=== PATIENT | male | born 1980 ===

== ENCOUNTER 2023-07-17 12:42 | Emergency (ER) | payer MEDICAID, SELFPAY ==
--- NOTE | ~2023-07-17 | XR_ITS ---
EXAMINATION: Left wrist x-ray and left finger x-ray CLINICAL INFORMATION: Pain COMPARISON: None. TECHNIQUE: 4 views of the left wrist and 3 views of the left fifth finger FINDINGS: Left wrist: Bone alignment is normal. No fracture or dislocation. Normal joint spaces. Normal soft tissues. Left fifth finger: There is a volar plate fracture of the distal phalanx of the fifth finger intra-articular with the DIP joint. Fracture fragment is displaced dorsally. There may be slight volar or palmar subluxation of the distal phalanx with respect to the middle phalanx. Fracture fragment appears well-corticated and may not be acute. There is overlying soft tissue swelling. XR/XR finger LT min 2V IMPRESSION: Left fifth finger: The liver plate fracture of the distal phalanx of the fifth finger intra-articular with the DIP joint. This may not be acute. Left wrist: Unremarkable exam
--- NOTE | ~2023-07-17 | XR_ITS ---
EXAMINATION: Left wrist x-ray and left finger x-ray CLINICAL INFORMATION: Pain COMPARISON: None. TECHNIQUE: 4 views of the left wrist and 3 views of the left fifth finger FINDINGS: Left wrist: Bone alignment is normal. No fracture or dislocation. Normal joint spaces. Normal soft tissues. Left fifth finger: There is a volar plate fracture of the distal phalanx of the fifth finger intra-articular with the DIP joint. Fracture fragment is displaced dorsally. There may be slight volar or palmar subluxation of the distal phalanx with respect to the middle phalanx. Fracture fragment appears well-corticated and may not be acute. There is overlying soft tissue swelling. XR/XR wrist LT min 3V IMPRESSION: Left fifth finger: The liver plate fracture of the distal phalanx of the fifth finger intra-articular with the DIP joint. This may not be acute. Left wrist: Unremarkable exam
[2023-07-17 13:57] VITALS: BP 103/58; PULSE 73; RESP 18; TEMP 36.9; O2SAT 97; BMI 23.6
--- NOTE | 2023-07-17 13:57 | ED.GENADULT ---
HPI - General Adult General Chief complaint: Extremity Injury, Upper Stated complaint: Kenny Smith Pinky 1 Month Ago Time Seen by Provider: 07/17/23 15:38 Source: patient, RN notes reviewed and old records reviewed Mode of arrival: ambulatory History of Present Illness [facility] narrative: 42-year-old male with no significant past medical history presenting to the ED complaining of continued left pinky finger pain and swelling S/P jamming finger 1 month ago while playing basketball. Reports decreased ROM. Has been taking OTC medications without relief. Denies numbness, tingling, injury to other area. Patient is left-hand dominant Onset (ago): month(s) Related Data Previous Rx's Medication Instructions Recorded acetaminophen 500 mg tablet 500 mg PO Q6H PRN fever or pain 07/17/23 (Tylenol Extra Strength) #14 tabs ketorolac 10 mg tablet 10 mg PO TID PRN pain 5 days #15 07/17/23 tabs Allergies Allergy/AdvReac Type Severity Reaction Status Date / Time Penicillins Allergy Rash Verified 07/17/23 13:56 Review of Systems Review of Systems: Constitutional: No Fever, No Chills ENT/Mouth: No Ear Pain, No Nasal Congestion, No sore throat, No Rhinorrhea, No Swallowing Difficulty Cardiovascular: No Chest Pain, No SOB Respiratory: No Cough, No Sputum Gastrointestinal: No Nausea, No Vomiting, No Abdominal pain Musculoskeletal: + joint pain, No Myalgias, + Joint Swelling Skin: No Skin Lesions, No rash Neuro: No Weakness, No Numbness, No Paresthesias Yes all other systems are reviewed and are negative Constitutional: Constitutional: Reports as per [facility] Past Medical History Attestation statement: The following information was validated with the patient. Source: old records reviewed Social History Social History Advance Directives: No Advance Directives Information Provided: No Physical Exam ED Vital Signs: Vital Signs - 24 hr 07/17/23 13:57 Temperature 98.4 F Pulse Rate 73 Respiratory Rate 18 Blood Pressure 103/58 L Pulse Oximetry 97 Oxygen Delivery Method Room Air BMI result Body Mass Index 23.6 Const General: cooperative, healthy appearing and no acute distress Orientation/consciousness: patient oriented x3 Limitations: no limitations HENMT Head: Yes normal to inspection and Yes atraumatic Ears: hearing grossly normal bilaterally General nose exam: Normal external nose present Face and sinus: Yes normal facial exam Eyes General: appearance normal, both eyes and all related structures EOM: EOMs intact bilaterally Neck Neck: Yes normal visual inspection and Yes no meningeal signs Resp Effort & Inspection: normal respiratory effort and no respiratory distress Cardio Rate: regular rate Skin Rashes: no rashes Wounds: no wounds Neuro General: patient oriented x3, tone normal and no meningeal signs Cranial nerves: Yes CN's II-XII intact bilaterally Gait exam (Neuro): Normal gait present Extrem Other: Left distal 5th digit with swelling and decreased ROM. Extension at DIP absent. FROM to all other digits and wrist intact. No snuffbox tenderness. Finger to thumb opposition intact. Neurovascularly intact. Course Course Course Narrative: RME- left fifth finger pain and left wrist pain for the last month after injuring it playing basketball. Plan for x-rays XR wrist LT min 3V/XR finger LT min 2V IMPRESSION: Left fifth finger: The liver plate fracture of the distal phalanx of the fifth finger intra-articular with the DIP joint. This may not be acute. Left wrist: Unremarkable exam > patient placed in finger splint in hyperextension. Recommended close orthopedic follow-up. Results discussed with patient including worrisome signs and symptoms and strict return precautions, and when to return to the emergency department. They verbalized understanding and feel safe for discharge at this time. Procedures Orthopedic Splinting/Casting Injury #1: Side: left Upper Extremity Injury Location: finger Upper Extremity Immobilizer: finger (other) Medical Decision Making Medical Decision Making MDM Narrative: 42-year-old male with no significant past medical history presenting to the ED complaining of continued left pinky finger pain and swelling S/P jamming finger 1 month ago while playing basketball. On exam vital signs stable, NAD, nontoxic appearing, physical exam as noted above with left distal 5th digit with noted swelling and deformity, DIP extension absent. Concern for subacute fracture with avulsion injury. No evidence of cellulitis/infection or septic joint. Plan: X-rays Please refer to course for remaining clinical decision making, interpretation of labs/imaging results, and discussions with consultants and/or family members. Differential Diagnosis Differential Diagnoses: The differential diagnosis associated with the presentation includes As above Independent Interpretation I performed an independent interpretation of an: Plain X-Ray Radiology Impression Discussion of test interpretation with radiology: I have reviewed the radiologist's reading. External Record Review External record reviewed: Inpatient record, Office record, Outpatient record, Prior outpatient labs, Prior outpatient radiology, Primary care record and Outside ED record Tests considered The following testing was considered but not selected: As above Prescription Management I considered prescription management with: Pain Medication Discharge Plan Discharge Clinical Impression: Fracture of distal phalanx of left little finger, Mallet finger Patient Disposition: Home, Self-Care Instructions: Jammed Finger (ED), Finger Fracture (ED) Additional Instructions: You have a fracture of her distal pinky finger. We suspect you also ruptured your extensor tendon Please keep finger splint on, dry and clean Take Tylenol and Toradol for pain/swelling. While taking Toradol do not take ibuprofen/Motrin/Aleve or naproxen as they are similar medications, only pick 1 Ice and elevate Prescriptions: New acetaminophen [Tylenol Extra Strength] 500 mg tablet 500 mg PO Q6H PRN (Reason: fever or pain) Qty: 14 0RF ketorolac 10 mg tablet 10 mg PO TID PRN (Reason: pain) 5 Days Qty: 15 0RF Referrals: Evette Arriaga MD [Physician] - 5 days
[2023-07-17] MEDS: Ketorolac Tromethamine 30 MG/ML VIAL IM (16:50)
== END 2023-07-17 16:54 | disposition home or self-care (01) ==
PROVIDERS: Emergency Provider Student in an Organized Health Care Education/Training Program; PCP Internal Medicine
DX: S62.637A Displaced fracture of distal phalanx of left little finger, initial encounter for closed fracture (principal); M25.532 Pain in left wrist; Y29.XXXA Contact with blunt object, undetermined intent, initial encounter; Y93.9 Activity, unspecified; Y92.9 Unspecified place or not applicable; Y99.9 Unspecified external cause status
CPT/HCPCS: 29130; 73110; 73140; 96372; 99283; 99284; J1885

== ENCOUNTER 2023-07-21 10:14 | Outpatient (AMB) | payer MEDICAID, SELFPAY ==
--- NOTE | 2023-07-21 10:15 | MHC.OFFVIS ---
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 Patient reports about 1-2 months while playing basketball he jammed his small finger. He presented to [facility] ED where xrays were taken, placed in splint and referred to orthopedics. Currently pt states he has pain and discomfort at this time. 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 He was seen at ED where x-rays were performed and he was placed in a splint as well as referred to our office. He currently states he has pain, discomfort and swelling in his finger. 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 [facility] Surgical History History of surgery on left wrist Social History Household Members: None Housing: Apartment Alcohol intake: never Patient Tobacco Use Status: Never used Tobacco Substance Use Type: Marijuana Review of Systems Const All systems reviewed & are unremarkable except as noted in HPI and below Physical Exam Const General: cooperative, healthy appearing, comfortable, no acute distress, well developed and alert Orientation/consciousness: patient oriented x3 HEENT Head: Yes normal to inspection, Yes normocephalic and Yes atraumatic Eyes General: appearance normal, both eyes and all related structures Neck Neck: Yes normal visual inspection and Yes no lymphadenopathy Resp Effort & Inspection: normal respiratory effort and able to speak in complete sentences Cardio Rate: regular rate Peripheral pulses: Peripheral pulses 2+ throughout GI Inspection: Yes normal to inspection Palpation (GI): Soft to palpation Skin General skin exam: no rashes or lesions noted Lesions: no lesions Rashes: no rashes Neuro General: patient oriented x3 Extrem Other: Left small finger: Normal to inspection. He does have an extension lag at DIP joint with some tenderness to palpation. NVI. Psych Appearance: grossly normal Mental Status: mental status grossly normal Office Procedures Fracture Care Fracture Billing Code: Fracture Billing Code Assessment & Plan Assessment & Plan (1) Fracture of distal phalanx of left little finger: Code(s): S62.637A - Displaced fracture of distal phalanx of left little finger, initial encounter for closed fracture Qualifiers: Encounter type: initial encounter Fracture type: closed Fracture alignment: displaced Qualified Code(s): S62.637A - Displaced fracture of distal phalanx of left little finger, initial encounter for closed fracture Plan I discussed the case with Dr. Rodríguez. I discussed the extent of the injury to the patient and options available. Given the extent of the fracture pattern and high risk of further displacement, it is recommended that we surgically fix this to help with stability and restoring anatomy. I explained to the patient the procedure in detail along with the risks, benefits and alternatives. Risks including but not limited to infection, wound breakdown, stiffness, ongoing pain, nonunion or malunion, and possible complications with hardware. He does understand all this and would like to proceed with closed versus open reduction internal fixation of the left 5th [address] Dr. Arriaga. He will be booked accordingly. Patient Instructions: Scribed for Franki Herring PA-C, by Mikel Edge medical insurance verifier, on 07/21/2023 at 10:15 AM ED. Franki Camp PA-C, have personally reviewed and agree with the information entered by the scribe. Coding Level of Care Code New Pt Level 4 (12777) Diagnoses Closed displaced fracture of distal phalanx of left little finger, initial encounter S62.637A Encounter type: initial encounter Fracture type: closed Fracture alignment: displaced CPT Codes Fracture Care - Fracture Billing Code: Fracture Billing Code ([id number])
== END 2023-07-21 11:12 | disposition home or self-care (01) ==
PROVIDERS: PCP Internal Medicine; Visit Provider Physician Assistant
DX: S62.637A Displaced fracture of distal phalanx of left little finger, initial encounter for closed fracture (principal)
CPT/HCPCS: 99204

== ENCOUNTER → 2023-07-21 10:14 | Outpatient (BNVA) | payer MEDICAID, SELFPAY | PROVIDERS: PCP Internal Medicine; Visit Provider Physician Assistant | DX: S62.637A Displaced fracture of distal phalanx of left little finger, initial encounter for closed fracture (principal) | CPT/HCPCS: 99212 ==

== ENCOUNTER 2023-07-31 07:00 | Day surgery (SDC) | payer MEDICAID, SELFPAY ==
[2023-07-31] VITALS (8 sets, daily range): BP systolic 96–114; BP diastolic 50–71; PULSE 58–82; RESP 12–20; TEMP 36.2–36.6; O2SAT 96–98; BMI 23.3
--- NOTE | ~2023-07-31 | FL_ITS ---
EXAMINATION: XR FLUOROSCOPY WITH IMAGES CLINICAL INFORMATION: Small finger closed reduction percutaneous pinning, left. COMPARISON: Previous x-ray 07/17/2023 of the left wrist and finger. TECHNIQUE: Fluoroscopy Supervised By: Dr. Evette Arriaga. Fluoroscopy Time: 27.12 seconds. Cumulative Dose: 0.6792 mGy. DAP: 0.0410 Gy-cm2. Images: 4. FINDINGS: Images demonstrate new K wire or pin across the distal interphalangeal joint of the left fifth finger. Displaced dorsal distal phalanx intra-articular fracture fragment. FL/FL guidance in OR IMPRESSION: Fluoroscopy guidance for arthrodesis of the distal interphalangeal joint of the left fifth finger.
--- NOTE | 2023-07-31 09:10 | HO.ANESPROP2 ---
Documented by User: Ivis Moore NP 07/28/23 10:13 HPI - Anesthesia Eval Consult details Narrative: 42yo M for Left small finger Closed Reduction Perc Pinning PMFSH Surgical History Surgical History History of surgery on left wrist Social History Social History Household Members: None Housing: Apartment Alcohol intake: never Patient Tobacco Use Status: Never used Tobacco Substance Use Type: Marijuana Substance Use Type Other:: Daily Marijuana Smoker Are you DNR?: No Advance Directives: No Advance Directives Information Provided: Yes Meds Allergies Allergy/AdvReac Type Severity Reaction Status Date / Time Penicillins Allergy Rash Verified 07/31/23 07:33 Assessment and Plan Assessment Anesthesia Assessment: Chart Reviewed Documented by User: Brittany Mao DO 07/31/23 09:15 PMFSH Family History Family history of problems with anesthesia: No Surgical History Surgical History History of surgery on left wrist History of Problems with Anesthesia: No Social History Social History Household Members: None Housing: Apartment Alcohol intake: never Patient Tobacco Use Status: Never used Tobacco Substance Use Type: Marijuana Substance Use Type Other:: Daily Marijuana Smoker Are you DNR?: No Advance Directives: No Advance Directives Information Provided: Yes Meds Allergies Allergy/AdvReac Type Severity Reaction Status Date / Time Penicillins Allergy Rash Verified 07/31/23 07:33 Exam Height,Weight and Vital Signs: Vital Signs Temperature 97.8 F 07/31/23 08:10 Pulse Rate 58 07/31/23 08:10 Respiratory Rate 16 07/31/23 08:10 Blood Pressure 97/50 L 07/31/23 08:10 Pulse Oximetry 98 07/31/23 08:10 Oxygen Delivery Method Room Air 07/31/23 08:10 Temperature 97.8 F 07/31/23 08:10 Pulse Rate 58 07/31/23 08:10 Respiratory Rate 16 07/31/23 08:10 Blood Pressure 97/50 L 07/31/23 08:10 Pulse Oximetry 98 07/31/23 08:10 Oxygen Delivery Method Room Air 07/31/23 08:10 Height 6 ft 1 in Airway Mallampati Class: I TM Dist: >3cm Neck ROM: Full Loose/Missing/Broken Teeth: No Heart: S1S2 Lungs: CTAB Assessment and Plan Assessment Anesthesia Assessment: Anesthesia Plan Discussed and Chart Reviewed Final Anesthetic Review Family History of Problems with Anesthesia: No History of Problems with Anesthesia: No NPO: Yes ASA Class: I Final Preanesthetic Review: No Changes in Pt Med Stat, Meds/Allgs Chart Reviewed, Consent Obtained/Reviewed and Anes Risks/Benef Reviewed Patient Risk: Low Procedure Risk: Low Anesthetic Plan Anesthetic Plan: GA and Agree w/ Assess. and Plan Disposition: Standard PACU
--- NOTE | 2023-07-31 09:54 | MHC.SHP ---
Pre-Procedural Eval Section A Date of Service: 07/31/23 The patient is an INPATIENT: No Changes since office visit: No Cold of Flu in the past 2 weeks, No New Medical Problems, No Changes in Medication and No Patient answered all questions The History & Physical has been completed within 30 days and I have reviewed it.: Yes Section B Chief Complaint: Fracture of unspecified phalanx of left little fin Allergies: Allergies Allergy/AdvReac Type Severity Reaction Status Date / Time Penicillins Allergy Rash Verified 07/31/23 07:33 Plan I have reviewed the history and physical and performed a pertinent physical examination on my patient. No changes have occurred unless specified. Time Spent With Patient Time: Total time managing care of this patient today ____ minutes.
--- NOTE | 2023-07-31 09:54 | W.PM.OPN ---
Operative Note Operative Note Date of Service: 07/31/23 Narrative: Operative Note Narrative: Preop diagnosis: 1. Left small finger intra-articular distal phalanx fracture with displacement, 2 months post injury with a mallet deformity Postop diagnosis: Same Procedure: 1. Left small finger distal phalanx fracture open reduction internal fixation 2. Left ulnar nerve block Surgeon: Evette Arriaga MD Anesthesia: General Anesthesia Findings: Left small finger 45-50 degree mallet deformity volar subluxation of the distal phalanx and proximal migration of the extensor mechanism including about 50% of the Bony articular surface. Implants: 0.045 K-wire x1 Tourniquet time: 41minutes EBL: 5.0 ml Specimen: none Drains: None Complications: None Disposition: Brought to the recovery room in stable condition Plan: Follow-up in 10-14 days for wound check, suture removal and pre clinic radiographs. Educate about pin site care. may carefully washed the pin sites with soap and water in the shower or sink, or use some half peroxide and water. No submerging the pins underwater. Small amount of antibiotic ointment and a light dressing with care be taken not to inadvertently withdraw the pins. Educate again, that if the pin should start to pull out the 1 thing he should never do is push the pin back in , and went to contact our clinic. Patient may then Begin daily pin site care, daily dressing changes and use of a finger splint that will allow for PIP joint motion. Anticipate K-wire removal at between 5 and 6 weeks postop. Indications: The patient is a [age] year old man with left small finger intra-articular distal phalanx fracture resulting in a 2-month-old bony mallet deformity with volar subluxation. . The risks and benefits of operative treatment, including but not limited to risk of damage to blood vessels, nerves, tendons, infection, recurrence, persistent pain or numbness, incomplete resolution of preoperative symptoms, or need for further surgery were discussed with the patient and they wished to proceed with surgery. Procedure: Once consent was obtained patient was brought back to the operating suite and placed in the operating table in a supine position. . Perioperative antibiotics and anesthesia was administered by the anesthesia team. A tourniquet was applied to the proximal aspect of the Left upper extremity and the limb was prepped and draped in a standard surgical fashion. The limb was elevated exsanguinated with Esmarch bandage and the tourniquet inflated to 250 mm of mercury for a total tourniquet time of 41 minutes. an S shaped dorsal incision was made over the dorsal aspect of the left small finger D IP joint. The incision was made through the skin to the subcutaneous tissues using a 15. Blade. I then carefully dissected down to the level of the extensor mechanism, fracture fragment and the D IP joint using tenotomy and iris scissors. The extensor tendon was mobilized from surrounding soft tissues to facilitate our open reduction of the fracture fragment. there were some fibers that healed from the fragment distally, but under insufficient tension, resulting in a significant mallet deformity. The FluoroScan was used during the case to assess our reduction and placement of all implants. I made a transverse incision of the fibers just distal to the displaced dorsal bony fragment. This allowed me to free up the bony fragment in the extensor tendon to better reduce the fragment and the tendon. I then passed a 0.045 K-wire retrograde through the tip of the distal phalanx Retrograde along the dorsal aspect of the distal phalanx to the fracture. I then reduced the distal phalanx dorsally, and pass the 0.045 K-wire across the fracture site and that across the D IP joint down to the base of the middle phalanx. I was unable to capture the the small fracture fragment. I therefore use some 4-0 FiberWire to then grasp the extensor mechanism in secure it to the remaining soft tissue at the very dorsal base of the distal phalanx. This at least reduce the fracture fragment to the area of the fracture at the dorsal base of the distal phalanx. K-wire was holding the distal phalanx in the reduced position on all views. Once satisfied with this the K-wire was bent cut short had a pin cap applied. At this point the tourniquet was deflated and hemostasis obtained with a brief period of local pressure. The wound was copiously irrigated with normal saline. The skin edges were reapproximated with 5-0 nylon suture. An ulnar nerve block was performed by infiltrating about the ulnar nerve at the wrist with some 1% lidocaine with epinephrine for postop pain control. A sterile dressing and a volar splint extending from the tips of the ring and small fingers to the volar forearm was then applied. The patient appears to have tolerated the procedure well and with no complications. All digits were well vascularized conclusion of the case.
[2023-07-31] MEDS: oxyCODONE HCl Immed Release 5 MG TABLET 10 MG PO (12:15)
[2023-07-31] MEDS: Acetaminophen 325 MG TABLET 650 MG PO (12:16)
== END 2023-07-31 13:03 | disposition home or self-care (01) ==
PROVIDERS: PCP Internal Medicine; Visit Provider Orthopaedic Surgery
PROC: (CPT 26765; principal; 2023-07-31 09:40)
DX: S62.637A Displaced fracture of distal phalanx of left little finger, initial encounter for closed fracture (principal); X58.XXXA Exposure to other specified factors, initial encounter; F12.90 Cannabis use, unspecified, uncomplicated; Y93.9 Activity, unspecified; Y92.9 Unspecified place or not applicable; Y99.9 Unspecified external cause status
CPT/HCPCS: 26765; J0690; J1100; J2250; J2405; J2704; J2795; J3010

== ENCOUNTER → 2023-07-31 07:00 | Outpatient (BNV) | payer MEDICAID, SELFPAY | PROVIDERS: PCP Internal Medicine; Visit Provider Orthopaedic Surgery | DX: S62.637A Displaced fracture of distal phalanx of left little finger, initial encounter for closed fracture (principal); M20.011 Mallet finger of right finger(s) | CPT/HCPCS: 26765 ==

== ENCOUNTER 2023-08-14 09:58 | Outpatient (AMB) | payer MEDICAID, SELFPAY ==
--- NOTE | 2023-08-14 10:07 | MHC.OFFVIS ---
Intake Intake Visit Reasons: PO- Lt SF CRPP 07/31 AR Intake Note: Alexis parra 42 year old left hand dominant male presents today for a post operative left SF CRPP, DOS 07/31/23 AR. Patient reports that he continues to have throbbing pain that is worse at night. He states most of his pain is in his wrist from an old injury about a year ago that required surgery. Allergies Penicillins Allergy (Verified 08/14/23 10:13) Rash HPI PO- Lt SF CRPP 07/31 AR HPI Details 42-year-old left hand dominant male who returns to the office today for post-op left small finger CRPP, 07/19/[address] Arriaga. He continues to have throbbing pain in his finger which is aggravated at night. He states most of his pain is in his wrist due to an old injury about an year ago that required a surgery. He is doing well otherwise and has no other concerns today. [facility] Surgical History History of surgery on left wrist Social History Household Members: None Housing: Apartment Alcohol intake: never Comment: counts correct Patient Tobacco Use Status: Never used Tobacco Substance Use Type: Marijuana Review of Systems Const All systems reviewed & are unremarkable except as noted in HPI and below Physical Exam Extrem Other: Left small finger: Pin is intact. No drainage or surrounding erythema. She can bend MCP to 90 degrees and PIP to 90 degrees. Mild tenderness at DIP. Office Procedures Casting/Splints 96297-Fapwgu Splint application Procedure code (CPT) selection complete Results Reviewed Results Reviewed: Xrays were obtained in the office today and personally reviewed by me of the left hand show pin intact , fracture stable Assessment & Plan Assessment & Plan (1) Fracture of distal phalanx of left little finger: Code(s): S62.637A - Displaced fracture of distal phalanx of left little finger, initial encounter for closed fracture Qualifiers: Encounter type: subsequent encounter Fracture alignment: displaced Fracture type: closed Fracture healing: with routine healing Qualified Code(s): S62.637D - Displaced fracture of distal phalanx of left little finger, subsequent encounter for fracture with routine healing Plan: He was educated about pin site care. He may carefully washed the pin sites with soap and water in the shower or sink, or use some half peroxide and water. No submerging the pins underwater. Small amount of antibiotic ointment and a light dressing with care be taken not to inadvertently withdraw the pins. Educated again, that if the pin should start to pull out the 1 thing he should never do is push the pin back in , and to contact our clinic. He was placed in a finger splint that will allow for PIP joint motion and f/u in 4 weeks for xrays and potential splint removal. Orders: Orders XR hand LT min 3V Today M79.642 - Pain in left hand Patient Instructions: Scribed for Franki Herring PA-C, by Mikel Edge medical social worker, on 08/14/2023 at 10:00 AM EST. I, Franki Herring PA-C, have personally reviewed and agree with the information entered by the scribe. Coding Level of Care Code Global (48781) Diagnoses Closed displaced fracture of distal phalanx of left little finger with routine healing, subsequent encounter S62.637D Encounter type: subsequent encounter Fracture alignment: displaced Fracture type: closed Fracture healing: with routine healing CPT Codes Splint - CPT: 71290-Evmbxf Splint application ([id number])
== END 2023-08-14 10:57 | disposition home or self-care (01) ==
PROVIDERS: PCP Internal Medicine; Visit Provider Physician Assistant
DX: S62.637D Displaced fracture of distal phalanx of left little finger, subsequent encounter for fracture with routine healing (principal)
CPT/HCPCS: 99024

== ENCOUNTER 2023-08-14 15:55 | Outpatient (REF) | payer MEDICAID, SELFPAY ==
--- NOTE | ~2023-08-14 | XR_ITS ---
EXAMINATION: XR HAND, LEFT CLINICAL INFORMATION: Pain in left hand COMPARISON: 07/17/2023 TECHNIQUE: PA, lateral, and oblique views of the left hand. FINDINGS: There is fixation device in the fifth finger transversing interphalangeal joint. There is an avulsion fragment at the base of the proximal phalanx of fifth finger as seen on the previous study and consistent with mallet fracture. XR/XR hand LT min 3V IMPRESSION: Interval fixation of distal interphalangeal joint of fifth finger for fixation of mallet fracture
== END 2023-08-14 15:56 | disposition home or self-care (01) ==
LOC: HO.HOSX 15:55
PROVIDERS: Visit Provider Physician Assistant
DX: M79.642 Pain in left hand (principal); S62.637D Displaced fracture of distal phalanx of left little finger, subsequent encounter for fracture with routine healing; X58.XXXD Exposure to other specified factors, subsequent encounter
CPT/HCPCS: 73130; 99212

== ENCOUNTER 2023-09-07 12:31 | Outpatient (REF) | payer MEDICAID, SELFPAY | END 2023-09-07 12:32 | disposition home or self-care (01) | LOC: HO.HOSX 12:31 | PROVIDERS: PCP Internal Medicine; Visit Provider Physician Assistant | DX: M79.642 Pain in left hand (principal); S62.637D Displaced fracture of distal phalanx of left little finger, subsequent encounter for fracture with routine healing; X58.XXXD Exposure to other specified factors, subsequent encounter | CPT/HCPCS: 73130; 99212 ==

== ENCOUNTER 2023-09-07 12:31 | Outpatient (AMB) | payer MEDICAID, SELFPAY ==
--- NOTE | 2023-09-07 12:41 | A.OFFVIS_ITS ---
Intake Intake Visit Reasons: PO-Lt Sm Finger CRPP 07/27 AR Intake Note: Marjorie 42 year old male presents today for a post operative left small finger CRPP, DOS 07/27/23 AR. Patient reports his pin came out a little when he accidentally hit his hand while cleaning, causing his pain to increase. Allergies Penicillins Allergy (Verified 09/07/23 12:43) Rash HPI PO-Lt Sm Finger CRPP 07/27 AR HPI Details 42-year-old male who returns [facility] today for post-op left small finger CRPP, 07/27/[address] Arriaga. He reports his pin came out a little when he accidentally hit his hand while cleaning which aggravated his pain. He has no other concerns today. [facility] Surgical History History of surgery on left wrist Social History Household Members: None Housing: Apartment Alcohol intake: never Comment: counts correct Patient Tobacco Use Status: Never used Tobacco Substance Use Type: Marijuana Review of Systems Const All systems reviewed & are unremarkable except as noted in HPI and below Physical Exam Extrem Other: Left small finger: Normal to inspection. Pin has started to come out further than he was last seen. No evidence of infection, redness, drainage or extreme pain. NVI. Assessment & Plan Assessment & Plan (1) Fracture of distal phalanx of left little finger: Code(s): S62.637A - Displaced fracture of distal phalanx of left little finger, initial encounter for closed fracture Qualifiers: Encounter type: subsequent encounter Fracture alignment: displaced Fracture healing: with routine healing Fracture type: closed Qualified Code(s): S62.637D - Displaced fracture of distal phalanx of left little finger, subsequent encounter for fracture with routine healing Plan Pin site was cleaned and the pin was removed today. I did explain to him that we will be putting him in a stack splint to allow for strict immobilization of the DIP joint. He can flex the finger at MCP and PIP. I encouraged him to wear it at all time to ensure proper bony healing through the injury. He will see us back in 2-3 weeks with new x-rays for a routine follow-up. Orders: Orders XR hand LT min 3V Today M79.642 - Pain in left hand Medications: New tramadol 50 mg PO BEDTIME 3 tabs 0RF 3 days Patient Instructions: Scribed for Franki Herring PA-C, by Mikel Edge certified medical technician, on 09/07/2023 at 12:30 PM EST. IFranki PA-C, have personally reviewed and agree with the information entered by the scribe. Coding Level of Care Code Global (88470) Diagnoses Closed displaced fracture of distal phalanx of left little finger with routine healing, subsequent encounter S62.637D Encounter type: subsequent encounter Fracture alignment: displaced Fracture healing: with routine healing Fracture type: closed
== END 2023-09-07 13:31 | disposition home or self-care (01) ==
PROVIDERS: PCP Internal Medicine; Visit Provider Physician Assistant
DX: S62.637D Displaced fracture of distal phalanx of left little finger, subsequent encounter for fracture with routine healing (principal)
CPT/HCPCS: 99024

== ENCOUNTER 2023-09-27 10:45 | Outpatient (REF) | payer MEDICAID, SELFPAY | END 2023-09-27 10:46 | disposition home or self-care (01) | LOC: HO.HOSX 10:45 | PROVIDERS: Visit Provider Orthopaedic Surgery | DX: Z13.89 Encounter for screening for other disorder (principal) ==

== ENCOUNTER 2023-09-28 10:33 | Outpatient (AMB) | payer MEDICAID, SELFPAY ==
--- NOTE | 2023-09-28 10:51 | MHC.OFFVIS ---
Intake Vital Signs 09/28/23 10:54 Height 6 ft 1 in Weight 170 lb BMI 22.4 Intake Visit Reasons: PO-f/u Lt Sm Finger CRPP 07/27 AR-xray Intake Note: Alexis parra 42 year old male presents today for a post operative left small finger CRPP, DOS 07/27/23 AR. States he has cont'd to wear his finger splint as directed. Currently his pain level is a 3 out of 10, states constant but tolerable pain. States recently finger splint has been causing him pain. Xrays updated in office. Allergies Penicillins Allergy (Verified 09/28/23 10:53) Rash HPI PO-f/u Lt Sm Finger CRPP 07/27 AR-xray HPI Details 42-year-old male who returns to the office today for post-op left small finger CRPP, 07/27/[address] Arriaga. He states he has constant tolerable pain in his finger and rates the pain as 3 on the scale of 0-10. He continues to wear his finger splint as instructed however he reports he experiences some pain due to the splint. He is doing well otherwise and has no other concerns today. [facility] Surgical History History of surgery on left wrist Social History Household Members: None Housing: Apartment Alcohol intake: never Comment: counts correct Patient Tobacco Use Status: Never used Tobacco Substance Use Type: Marijuana Review of Systems Const All systems reviewed & are unremarkable except as noted in HPI and below Physical Exam Vital Signs: BMI result Body Mass Index 22.4 Extrem Other: Left small finger: Pin site is well healed. He can extend the digits without extension lag however he can flex the MCP at 90 & PIP at 45 degrees. I can passively flex the PIP to 90 , DIP held in extension. Assessment & Plan Assessment & Plan (1) Fracture of distal phalanx of left little finger: Code(s): S62.637A - Displaced fracture of distal phalanx of left little finger, initial encounter for closed fracture Qualifiers: Encounter type: subsequent encounter Fracture alignment: displaced Fracture healing: with routine healing Fracture type: closed Qualified Code(s): S62.637D - Displaced fracture of distal phalanx of left little finger, subsequent encounter for fracture with routine healing Plan We did work on some exercises in the office today and I did stress the importance of doing these at home. 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 If symptoms persist or worsens, patient will contact the office, otherwise follow-up as needed. Orders: Orders XR hand LT min 3V 09/27/23 M79.642 - Pain in left hand Evette Arriaga MD XR hand LT min 3V Today M79.642 - Pain in left hand Franki Herring PA-C OT Evaluation and Treatment Today S62.316F - Displaced fracture of distal phalanx of left little finger, initial encounter for closed fracture Franki Herrign PA-C Patient Instructions: Scribed for Franki Herring PA-C, by Mikel Edge, director medical safety, on 09/28/2023 at 10:30 AM EST. I, Franki Herring PA-C, have personally reviewed and agree with the information entered by the scribe. Coding Level of Care Code Global (73020) Diagnoses Closed displaced fracture of distal phalanx of left little finger with routine healing, subsequent encounter S62.637D Encounter type: subsequent encounter Fracture alignment: displaced Fracture healing: with routine healing Fracture type: closed
[2023-09-28 10:54] VITALS: BMI 22.4
== END 2023-09-28 11:05 | disposition home or self-care (01) ==
PROVIDERS: PCP Internal Medicine; Visit Provider Physician Assistant
DX: S62.637D Displaced fracture of distal phalanx of left little finger, subsequent encounter for fracture with routine healing (principal)
CPT/HCPCS: 99024

== ENCOUNTER 2023-09-28 12:13 | Outpatient (REF) | payer MEDICAID, SELFPAY ==
--- NOTE | ~2023-09-28 | XR_ITS ---
EXAMINATION: XR HAND, LEFT CLINICAL INFORMATION: Pain. COMPARISON: Prior radiographs, most recently 09/07/2023. TECHNIQUE: PA, lateral, and oblique views of the left hand. FINDINGS: Bony alignment and mineralization are normal. There is a neutral ulnar variance. A faint pin tract is noted within the fifth middle and distal phalanges, with the orthopedic pin now removed. A mildly displaced small avulsion fracture fragment is redemonstrated of the base of the fifth distal phalanx posteriorly. No dislocation is seen. The proximal and distal carpal rows are intact. No soft tissue swelling, gas or foreign body is seen. XR/XR hand LT min 3V IMPRESSION: There is stable alignment of a mildly displaced fracture of the dorsal aspect of the base of the left fifth distal phalanx. And orthopedic pin coaxially transfixing the left fifth middle and distal phalanges has been removed in the interim.
== END 2023-09-28 12:14 | disposition home or self-care (01) ==
LOC: HO.HOSX 12:13
PROVIDERS: Visit Provider Physician Assistant
DX: M79.642 Pain in left hand (principal); S62.637D Displaced fracture of distal phalanx of left little finger, subsequent encounter for fracture with routine healing; X58.XXXD Exposure to other specified factors, subsequent encounter; Z96.692 Finger-joint replacement of left hand
CPT/HCPCS: 73130; 99212

== ENCOUNTER 2023-12-05 11:30 | Outpatient (RCR) | payer OTHER, SELFPAY ==
--- NOTE | 2023-11-06 14:51 | MHC.OT.EP ---
[address] [phone] Occupational Therapy Plan of Care Patient Name: Alexis Scherer Date of Evaluation: 11/06/23 Diagnosis: S/P L SF DISTAL PHALANX CRPP Pain Location: L VOLAR/DORSAL ASPECT OF SF DIPj 5/10 AT REST 8-9/10 WITH USE Pain Score: 5-9/10 Pain Scale Used: Numeric (0 - 10) Aggravating Factors: RESTING, STIFFNESS IN AM Alleviating Factors: HEAT, NOT USING PAIN MEDICATION Assessment: MR SCHERER IS 15 WEEKS S/P L SF DISTAL PHALANX CRPP WITH DR HENRIQUEZ (DOS 07/27/23) AFTER A TWO MONTH OLD MALLET INJURY WHILE PLAYING BASKETBALL. Pt REPORTS MODERATE PAIN AT REST AND HIGH PAIN WITH FUNCTIONAL USE. HE STATES THAT HE HAS BEEN USING HIS NON DOMINANT RUE FOR MORE DAILY TASKS. A 70% LIMITATION IS REPORTED PER THE QUICK DASH ASSESSMENT. HE WOULD BENEFIT FROM ADDITIONAL OT TO ADDRESS ROM, STRENGTH, EDEMA MANAGEMENT AND IADLs. Frequency and Duration: The patient will be seen 2X/WEEK FOR 3 WEEKS Short Term Goals: SEE BELOW Penitentiary Goals: IND HEP IND EDEMA MANAGEMENT STRATEGIES L DIPj FLEX 40 DEGREES TOLERATE LIFTING >20 POUNDS WITH <3/10 PAIN Treatment Plan: Therapeutic Exercise Therapeutic Activity Home Exercise Program Splinting Neuro Re-ed Patient Education Desensitization/Sensory Re-ed Edema Control ADL Training Ultrasound NMES Iontophoresis Paraffin Fluidotherapy MHP Cold Packs Joint Mobilization Soft Tissue Mobilization Kinesiotaping Other (see comments) Electronically Signed By: CARISA VELAZQUEZ OTR/L Please Sign and return to therapist. Thank you once again for your referral.
--- NOTE | 2023-12-15 13:16 | MHC.OT.DC ---
[address] [phone] F: [phone] Occupational Therapy Discharge Note Patient Name: Alexis Scherer Provider: Franki Herring Diagnosis: S/P L SF DISTAL PHALANX CRPP Date of Surgery: 07/27/23 Date of Evaluation: 11/06/23 Date of Discharge: 12/15/23 Treatments to Date: 5 Cancellations to Date: 1 No Shows to Date: 5 Discharge Status: Improved Function Independent with HEP Visit Non-compliance Discharge Summary: MR SCHERER HAS PROGRESSED WELL WITH HIS OT RX SESSIONS. HE WAS IND WITH HIS HEP, WITH RECENT FOCUS ON SCAR MOBILIZATION AND PAIN MANAGEMENT. HIS STRENGTH WAS APPROPRIATE FOR DAILY TASKS (105 POUNDS). Pt WILL BE DISCHARGED AT THIS TIME WITH RECOMMENDATIONS TO CONT WITH HIS HEP, HE HAS HAD FIVE NO SHOWS/ VISIT NON COMPLIANCE PER CORE ATTENDANCE POLICY. D/C OT. Electronically Signed By: CARISA VELAZQUEZ OTR/L Reviewed/agree with student documentation: N/A Therapist: Please Sign and return to therapist, thank you for your referral.
== END 2023-12-15 13:15 | disposition home or self-care (01) ==
LOC: HO.OT 11:30
PROVIDERS: PCP Internal Medicine; Visit Provider Physician Assistant
DX: S62.637A Displaced fracture of distal phalanx of left little finger, initial encounter for closed fracture (principal)
CPT/HCPCS: 97035; 97110; 97140; 97165